=== PATIENT | female | born 1990 | race Two or more races ===

== ENCOUNTER 2022-01-26 10:35 | Outpatient (CLI) | payer OTHER | END 2022-01-26 12:42 | disposition home or self-care (01) | LOC: PRENATAL 10:35 | PROVIDERS: ATTEND Obstetrics & Gynecology Maternal & Fetal Medicine | DX: O35.0XX0 Maternal care for (suspected) central nervous system malformation in fetus, not applicable or unspecified (principal); O35.3XX0 Maternal care for (suspected) damage to fetus from viral disease in mother, not applicable or unspecified; Z3A.25 25 weeks gestation of pregnancy ==

== ENCOUNTER 2022-04-29 04:15 | Inpatient (IN) | payer OTHER ==
[~2022-04-29] VITALS: Ht 172.7 cm; Wt 89.4 kg
[2022-04-29] MEDS ORDERED: PRENATABS RX T1 EACH PO (04:53)
== END 2022-05-01 12:44 | disposition home or self-care (01) | DRG 807 ==
LOC: LDR 04:15 → OB/GYN 04:15
PROVIDERS: ADMIT Obstetrics & Gynecology; ATTEND Obstetrics & Gynecology
PROC: 10E0XZZ Delivery of Products of Conception, External Approach (ICD-10-PCS; principal; 2022-04-29)
PROC: 4A1HXCZ Monitoring of Products of Conception, Cardiac Rate, External Approach (ICD-10-PCS; 2022-04-29)
DX: O80 Encounter for full-term uncomplicated delivery (principal); Z37.0 Single live birth; Z3A.39 39 weeks gestation of pregnancy; Z20.822 Contact with and (suspected) exposure to COVID-19